=== PATIENT | female | born 1960 | race Caucasian/White ===

== ENCOUNTER → 2016-10-28 | Outpatient (CLI) | payer BC ==
[2015-05-18 18:02] VITALS: BP 128/71
[~2016-10-28] MED LIST: NS 250 ML IV 250 ML IV ONE
[2016-10-28 12:14] LABS: CREATININE 0.99 mg/dL (0.55-1.02)
--- NOTE | 2016-10-28 14:12 | CT ---
CT OF THE ABDOMEN AND PELVIS WITH CONTRAST HISTORY: Abdominal pain with nausea and diarrhea Comparison: None Technique: Multiple axial images of the abdomen and pelvis were obtained from the lung bases to the pubic symphy sis follow the administration of IV contrast. Dose reduction techniques including Automated Exposure Control (AEC) and adjustment of mA and kV were utlized. Findings: The heart is normal in size. There is no pericardial effusion. Lung bases are clear without focal con solidation, pleural effusion or pneumothorax. Liver and spleen are normal in size, enhancement characteristics and contour. No focal lesions. The p ortal vein is patent. No ductal dilitation. Gallbladder absent. The pancreas is unremarkable. Adrenal glands are normal. Kidneys enhance symmetrically without hydronephrosis or nephrolithiasis. No bowel obstruction or inflammation. Normal appendix. No abnormal appearing mesenteric or retroperit peters lymph nodes. No free fluid or fluid collections. The bladder is normal in appearance. Status post hysterectomy. No free fluid or abnormal pelvic lymph nodes. No aggressive osseous lesions. IMPRESSION: 1. No source of patient's abdominal pain is identified on this examination. Reported By:
== END ==
LOC: RAD 11:33
PROVIDERS: ATTEND Internal Medicine
DX: R10.84 Generalized abdominal pain (principal)
CPT/HCPCS: 36415; 74177; 82565; 84520; A4222

== ENCOUNTER 2020-06-07 17:11 | Observation (INO) ==
[2020-06-07] MEDS ORDERED: NS 1000 ML 1,000 ML IV SCH (19:00)
[2020-06-07] MEDS: LIPITOR TAB 20 MG PO SCH ×2 (21:15→21:24)
[2020-06-07] MEDS: MUCINEX DM PO SCH ×2 (21:15→21:27)
[2020-06-07] MEDS: LAMICTAL TAB 100 MG PO SCH (21:15)
[2020-06-07] MEDS: DUONEB 0.5 MG/3 MG (3 mL) NEB SCH (21:26)
[2020-06-07 21:37] LABS: ALANINE AMINOTRANSFERASE 22 Units/L (12-78); ALBUMIN 3.3 g/dL (3.4-5.0); ALKALINE PHOSPHATASE 108 Units/L (46-116); ASPARTATE AMINO TRANSFERASE 13 Units/L (15-37); BLOOD UREA NITROGEN 18 mg/dL (7-18); CALCIUM 9.4 mg/dL (8.5-10.1); CARBON DIOXIDE 26.5 mmol/L (21-32); CHLORIDE 104 mmol/L (98-107); CKMB % 2.7 % (<4); COR NA(FOR HYPERGLY) 141 mmol/L (136-145); CREATINE KINASE 37 Units/L (26-192); CREATINE KINASE MB < 1.0 ng/mL (0-4.0); CREATININE 0.81 mg/dL (0.55-1.02); SODIUM 140 mmol/L (136-145); TOTAL PROTEIN 8.1 g/dL (6.4-8.2); TROPONIN I < 0.02 ng/mL (0-1.5); eGFR NON BLACK RACES > 60 (>60)
[2020-06-07 21:39] VITALS: BMI 31.4
[2020-06-07 21:52] LABS: BASOPHILS # (AUTO) 0.1 X10^3/uL (0.0-0.1); BASOPHILS % (AUTO) 0.5 % (0.2-1.0); HEMATOCRIT 43.4 % (36.0-47.0); HEMOGLOBIN 14.2 g/dL (12.0-16.0); LYMPHOCYTES # (AUTO) 2.7 X10^3/uL (1.3-2.9); LYMPHOCYTES % (AUTO) 12.4 % (21.0-51.0); MEAN CORPUSCULAR HEMOGLOBIN 28.5 pg (27.0-34.0); MEAN CORPUSCULAR HGB CONC 32.8 g/dL (33.0-35.0); MEAN PLATELET VOLUME 8.1 fL (7.4-11.0); MONOCYTES # (AUTO) 1.3 x10^3/uL (0.3-0.8); NEUTROPHILS # (AUTO) 17.8 x10^3/uL (2.2-4.8); NEUTROPHILS % (AUTO) 81.1 % (42.0-75.0); PLATELET COUNT 354 X10^3/uL (150.0-450.0); RED BLOOD COUNT 4.99 X10^6/uL (3.5-5.4); RED CELL DISTRIBUTION WIDTH 13.3 % (11.6-16.5); WHITE BLOOD COUNT 21.9 X10^3/uL (3.6-10.0)
[2020-06-07 22:35] LABS: PLATELET MORPHOLOGY COMMENT NORMAL (NORMAL)
[2020-06-07 22:41] LABS: ERYTHROCYTE SEDIMENTATION RATE 21 MM/HOUR (0-20)
--- NOTE | 2020-06-07 22:55 | RAD ---
HISTORYCHEST TIGHTNESS, SOBSTUDYCHEST, 1 VIEWCOMPARISONNone availableTECHNIQUEChest radiographic imaging, frontal projection, 1 imageFINDINGSNo cardiomegaly.Mild increased interstitial markings.Trace fluid forced fissure.No focal airspace disease.No basilar pleural effusion.No pneumothorax.No acute osseous abnormality.IMPRESSIONFindings could represent mild cardiogenic edema or the sequela of an atypical/viral infectious process.Electronically signed by: Emigdio Lofton (Jun 07, 2020 22:53:24)
[2020-06-08] MEDS: DUONEB 0.5 MG/3 MG (3 mL) NEB SCH ×4 (05:01→20:38)
[2020-06-08] MEDS: LAMICTAL TAB 100 MG PO SCH ×2 (08:59→21:26)
[2020-06-08] MEDS: COZAAR PO SCH (08:59)
[2020-06-08] MEDS: MUCINEX DM PO SCH ×2 (09:00→21:26)
[2020-06-08 09:18] LABS: CKMB % 3.3 % (<4); CREATINE KINASE 30 Units/L (26-192); CREATINE KINASE MB < 1.0 ng/mL (0-4.0); TROPONIN I < 0.02 ng/mL (0-1.5)
[2020-06-08] MEDS ORDERED: NS 100 ML IV 100 ML IV ONE (10:41)
--- NOTE | 2020-06-08 11:20 | DR.H&P ---
H&P - History & Physical for Day of: H&P Date: 06/07/20 - Chief Complaint Chief Complaint: COUGH, CONGESTION, CHEST PAIN, SHORTNESS OF BREATH - History of Present Illness History of Present Illness: IS A 60 YEAR OLD PATIENT OF OURS WHO PRESENTED TO THE OFFICE WITH REPORTS OF CHEST CONGESTION, CHEST PAIN, AND INTERMITTENT SHORTNESS OF BREATH. SHE WAS SEEN IN THE EMERGENCY ROOM THREE DAYS PRIOR AND WAS DIAGNOSED WITH BRONCHITIS. AT THAT TIME, SHE WAS PRESCRIBED ALBUTEROL NEB TX AND LEVAQUIN 500MG PO DAILY X 10 DAYS. SHE WAS ALSO GIVEN AN INJECTION OF STEROIDS. SHE WAS GIVEN A MEDROL DOSEPACK WELL, BUT REPORTS THAT SHE HAD ONLY TAKEN ONE PILL. SHE DENIED IMPROVEMENT IN SYMPTOMS DESPITE COMPLAINCE WITH MEDS. AUSCULTATION OF LUNG ROSE REVEALED SCATTERED WHEEZING THROUGHOUT. SHE WAS ADMITTED TO THE HOSPTIAL FOR FURTHER EVALUATION AND TREATMENT OF CHEST PAIN/TIGHTNESS, SHORTNESS OF BREATH. ON ARRIVAL TO THE HOSPTIAL, VITALS WERE 98.4-104-20-95%RA-137/84. LABS WERE OBTAINED. ABNORMAL LAB VALUES INCLUDED THE FOLLOWING: WBC 21.9, GLUCOSE 127, AST 13, ALBUMIN 3.3, GLOBULIN 4.8. CARDIAC ENZYMES WERE WITHIN NORMAL LIMITS. A CHEST XRAY WAS OBTAINED AND REVEALED: Findings could represent mild cardiogenic edema or the sequela of an atypical/viral infectious process. EKG REVEALED: SINUS RHYTHM WITH HR 83. SHE WAS STARTED ON LEVAQUIN 750MG IV DAILY, DUONEBS TID, LIPITOR 20MG PO HS, MUCINEX DM 1 TABLET PO BID, LAMICTAL 100MG PO BID, AND COZAAR 100MG PO DAILY. WE WILL OBTAIN A CHEST CTA TO RULE OUT PE AND AN ECHOCARDIOGRAM. WE WILL SET UP A SPUTUM CULTURE. OTHERWISE, WE PLAN TO FOLLOW UP WITH AM LABS AND CONTINUE TO MONITOR. TIME SPENT ON CLINICAL ASSESSMENT, REVIEWING LABS AND IMAGING, DECISION MAKING, AND DOCUMENTATION GREATER THAN 75 MINUTES. - Past Medical History Past Medical History: Depression, Hypertension, Seizures - Past Surgical History Surgical History: , Cholecystectomy, Hysterectomy - Family History Family Medical History: Coronary Artery Disease, Hypertension - Social History Does patient currently use any type of tobacco product: No Type of Tobacco Use: None Does any household member use tobacco: No Alcohol Use: None Drug Use: None - Medications Home Medications: codeine Allergy (Verified 06/07/20 18:37) CONTINUE taking the following medications levofloxacin 500 mg PO DAILY 06/07/20 [History] valsartan 320 mg PO DAILY 06/07/20 [History] New Prescriptions aspirin [Ecotrin Low Strength] 81 mg PO QDAY #30 tab 06/08/20 [Rx] atorvastatin [Lipitor] 20 mg PO QHS #30 tab 06/08/20 [Rx] losartan [Cozaar] 100 mg PO DAILY #30 tab 06/08/20 [Rx] - Review of Systems Constitutional: Weakness Eyes: No Symptoms Reported ENT: No Symptoms Reported Respiratory: See HPI, Cough, Shortness of Breath, SOB with Excertion, Wheezing Cardiovascular: No Symptoms Reported Gastrointestinal: No Symptoms Reported Genitourinary: No Symptoms Reported Musculoskeletal: No Symptoms Reported Skin: No Symptoms Reported Neurological: No Symptoms Reported - Physical Exam Vital Signs: Temperature 97.7 F Pulse Rate [Left] 67 Pulse Rate 71 Respiratory Rate 18 Blood Pressure [Left Arm] 154/73 Blood Pressure 128/71 O2 Sat by Pulse Oximetry 97 Oriented: Normal Eyes: Normal Ear: Normal Nose: Normal Throat: Normal Respiratory: Wheezes Throughout Cardiovascular: Normal : Normal Auscultation: Bowel Sounds: Normal Palpation: Normal Tenderness: Normal Skin: Normal Musculoskeletal: Normal Psychiatric: Normal Mood Description: Calm Affect: Normal Speech Pattern: Clear - Assessment/Plan (1) Bronchopneumonia Status: Acute Plan: ADMIT, LEVAQUIN 750MG IV DAILY, DUONEBS TID, LIPITOR 20MG PO HS, MUCINEX DM 1 TABLET PO BID, LAMICTAL 100MG PO BID, AND COZAAR 100MG PO DAILY. BLOOD AND SPUTUM CULTURES (2) Chest pain Qualifiers: Chest pain type: unspecified Qualified Code(s): R07.9 - Chest pain, unspecified Status: Acute (3) Shortness of breath Status: Acute - Allergies Allergies/Adverse Reactions: Allergies Allergy/AdvReac Type Severity Reaction Status Date / Time codeine Allergy Verified 06/07/20 18:37
[2020-06-08] MEDS ORDERED: SALINE 3% 15 ML NEB TX NEB ONE (11:24)
[2020-06-08] MEDS ORDERED: SALINE 3% 15 ML NEB TX ONE (11:39)
[2020-06-08] MEDS: LEVAQUIN PREMIX IV 750 MG 750 MG/150 ML BAG IV SCH (12:48)
--- NOTE | 2020-06-08 12:58 | CT ---
PROCEDURE: CTA Chest .HISTORY: Short of breath with chest tightness and cough.TECHNIQUE: Axial images were performed through the chest with the administration of IV contrast with multiplanar reformations . 3D and MIPS reconstructions were performed and reviewed. Dose reduction techniques including Automated Exposure Control (AEC) and adjustment of mA and kV were utilized .COMPARISON: None .TECHNICAL QUALITY: Satisfactory .FINDINGS:Minimal atherosclerotic calcifications involving thoracic aorta with no aneurysm or dissection.No evidence of pulmonary embolus.Mediastinum and hilar regions show no masses or lymphadenopathy.Normal size heart with no pericardial fluid.No pulmonary consolidation, masses, or pleural fluid.Visualized upper abdomen shows previous cholecystectomy.No acute bony abnormality.IMPRESSION:1. No pulmonary embolus or aortic dissection.2. No pulmonary consolidation.Electronically signed by: Anil Lerma (Jun 08, 2020 12:55:59)
[2020-06-08] MEDS: LIPITOR TAB 20 MG PO SCH ×2 (21:26→21:27)
[2020-06-09] MEDS: DUONEB 0.5 MG/3 MG (3 mL) NEB SCH (05:05)
--- NOTE | 2020-06-09 05:56 | RAD ---
HISTORYSOBSTUDYAP [id number] normal heart size with lungs clear of active disease. No d eveloping infiltrate, atelectasis or pleural fluid. There is a calcified lymph node again noted in th e right mediastinum.IMPRESSIONNo acute chest abnormality demonstrated.Electronically signed by: JOSTIN WESLEY (Jun 09, 2020 05:55:23)
[2020-06-09 06:23] LABS: BASOPHILS # (AUTO) 0.1 X10^3/uL (0.0-0.1); BASOPHILS % (AUTO) 0.8 % (0.2-1.0); EOSINOPHILS # (AUTO) 0.3 x10^3/uL (0.0-0.2); EOSINOPHILS % (AUTO) 2.4 % (0.9-2.9); HEMATOCRIT 41.5 % (36.0-47.0); HEMOGLOBIN 13.5 g/dL (12.0-16.0); LYMPHOCYTES # (AUTO) 4.6 X10^3/uL (1.3-2.9); LYMPHOCYTES % (AUTO) 42.6 % (21.0-51.0); MEAN CORPUSCULAR HEMOGLOBIN 28.8 pg (27.0-34.0); MEAN CORPUSCULAR HGB CONC 32.5 g/dL (33.0-35.0); MEAN CORPUSCULAR VOLUME 88.4 fL (80.0-100.0); MEAN PLATELET VOLUME 8.1 fL (7.4-11.0); MONOCYTES # (AUTO) 0.5 x10^3/uL (0.3-0.8); NEUTROPHILS # (AUTO) 5.3 x10^3/uL (2.2-4.8); NEUTROPHILS % (AUTO) 49.2 % (42.0-75.0); PLATELET COUNT 283 X10^3/uL (150.0-450.0); RED BLOOD COUNT 4.69 X10^6/uL (3.5-5.4); RED CELL DISTRIBUTION WIDTH 13.6 % (11.6-16.5); WHITE BLOOD COUNT 10.8 X10^3/uL (3.6-10.0)
[2020-06-09 06:36] LABS: ALANINE AMINOTRANSFERASE 20 Units/L (12-78); ALBUMIN 3.1 g/dL (3.4-5.0); ALKALINE PHOSPHATASE 91 Units/L (46-116); ASPARTATE AMINO TRANSFERASE 13 Units/L (15-37); BLOOD UREA NITROGEN 14 mg/dL (7-18); CALCIUM 9.1 mg/dL (8.5-10.1); CARBON DIOXIDE 25.2 mmol/L (21-32); COR CA(FOR HYPOALB) 9.8 mg/dL (8.5-10.1); CREATININE 0.92 mg/dL (0.55-1.02); TOTAL PROTEIN 7.4 g/dL (6.4-8.2); eGFR NON BLACK RACES > 60 (>60)
[2020-06-09 06:41] LABS: CHLORIDE 104 mmol/L (98-107); SODIUM 142 mmol/L (136-145)
[2020-06-09] MEDS: LAMICTAL TAB 100 MG PO SCH (08:41)
[2020-06-09] MEDS: COZAAR PO SCH (08:41)
[2020-06-09] MEDS: MUCINEX DM PO SCH (08:43)
[2020-06-09 09:14] VITALS: BP 154/72
[2020-06-09] MEDS: LEVAQUIN PREMIX IV 750 MG 750 MG/150 ML BAG IV SCH (09:17)
== END 2020-06-09 09:40 | disposition home or self-care (01) ==
LOC: MED/SURG
PROVIDERS: ADMIT Internal Medicine; ATTEND Internal Medicine
DX: J18.0 Bronchopneumonia, unspecified organism; R06.02 Shortness of breath; I10 Essential (primary) hypertension; R07.89 Other chest pain; R79.89 Other specified abnormal findings of blood chemistry; Z20.822 Contact with and (suspected) exposure to COVID-19